=== PATIENT | female | born 1985 | race Two or more races ===

== ENCOUNTER 2019-01-08 04:02 | Emergency (ER) | payer MEDICAID ==
[~2019-01-08] VITALS: Ht 149.9 cm; Wt 64.9 kg
[~2019-01-08 04:02] MED LIST: NKM; NORCO 5-325 TA1 EACH ORAL; SENNA-GEN8.6 M1 ORAL
--- NOTE | 2019-01-08 04:10 | NUR ---
ED Nurse Note: Faby walked into ED 13 weeks c/o baginal bleeding, patient states that the bleeding started on January 02 to which spotting occured then after having a pap smear done on thursday she noticed an increasing in bleeding, patient reports of cramping pain. patient reports of saturating a light pad. she describes the characteristics as dark red. patient is alert and oriented x4, ambulatory with a steady gait, VSS
--- NOTE | 2019-01-08 04:26 | Emergency Room Report ---
History of Present Illness General Chief Complaint: Complications Source: Patient Present Illness HPI Is a 33-year-old female who is 4, para 3, approximately 13 weeks . She is a positive blood type. She presents with vaginal bleeding and cramping pain. Onset for 6 days. She seen her doctor at the clinic twice already. Had blood work done. She does not know the results. No ultrasound for this . Initially she had spotting. It proceeded to be more of a light period. Now with heavier bleeding with clots. Cramping pain in the lower abdominal area. No nausea no vomiting. No fever chills. No trauma. Allergies: Coded Allergies: No Known Allergies (Unverified , 06/03/16) Patient History Past Medical History: see triage record, old chart reviewed Past Surgical History: other Pertinent Family History: none Social History: Denies: smoking Last Menstrual Period: Oct 20 2018 Now: Yes : 4 Para: 3 Immunizations: other Reviewed Nursing Documentation: PMH: Agreed; PSxH: Agreed Nursing Documentation-PMH Past Medical History: No History, Except For Hx Cardiac Problems: No Hx Cancer: No Hx Gastrointestinal Problems: Yes Hx Neurological Problems: No Review of Systems Eye: Denies: eye pain, blurred vision ENT: Denies: ear pain, nose congestion, throat swelling Respiratory: Denies: cough, shortness of breath Cardiovascular: Denies: chest pain, palpitations Gastrointestinal: Denies: abdominal pain, diarrhea, nausea, vomiting Genitourinary: Reports: vag bleed/dc Musculoskeletal: Denies: back pain, joint pain Skin: Denies: rash Neurological: Denies: headache, numbness Endocrine: Denies: increased thirst, increased urine Hematologic/Lymphatic: Denies: easy bruising All Other Systems: negative except mentioned in HPI Physical Exam Vital Signs Date Time Temp Pulse Resp B/P (MAP) Pulse Ox O2 Delivery O2 Flow Rate FiO2 01/08/19 04:04 98.4 80 18 125/82 (96) 100 Room Air Vitals normal Sp02 EP Interpretation: reviewed, normal General Appearance: well appearing, no apparent distress, alert Head: normocephalic, atraumatic Eyes: bilateral eye PERRL, bilateral eye EOMI ENT: hearing grossly normal, normal pharynx Neck: full range of motion, supple, no meningismus Respiratory: chest non-tender, lungs clear, normal breath sounds Cardiovascular #1: regular rate, rhythm, no murmur Gastrointestinal: normal bowel sounds, non tender, no mass, no organomegaly, no bruit, non-distended Genitourinary: other - Pelvic exam was done with female nurse as transfer station attendant. External exam normal. Internal exam with clots and small amount of tissue at the os. Os is fingertip open. Musculoskeletal: back normal, gait/station normal, normal range of motion Psychiatric: mood/affect normal Medical Decision Making Diagnostic Impression: Primary Impression: Incomplete ER Course Patient presents with a spontaneous . My transabdominal ultrasound does not show a 13-week IUP. There was a small possible gestational sac of about 6 weeks gestation. We will get an official pelvic ultrasound. Patient ultrasound just showed possible gestational sac. No ectopic. Bleeding improved after I evacuated the tissue at the office. Will discharge home. We will give her labs here. CT/MRI/US Diagnostic Results CT/MRI/US Diagnostic Results : Imaging Test Ordered: US pelvic Impression Ultrasound read by electroplating technician. There is a cystic sac that may be a gestational sac. No ectopic. Last Vital Signs Date Time Temp Pulse Resp B/P (MAP) Pulse Ox O2 Delivery O2 Flow Rate FiO2 01/08/19 04:04 98.4 80 18 125/82 (96) 100 Room Air Status: improved Disposition: HOME, SELF-CARE Condition: Stable Scripts Ibuprofen* (MOTRIN*) 600 Mg Tablet 600 MG ORAL THREE TIMES A DAY, #30 TAB 0 Refills Prov: Javon Corral MD 01/08/19 Additional Instructions: Follow up with your [employer] on Thursday. Return if symptoms worsen. Javon Corral MD Jan 08, 2019 04:26
[2019-01-08 04:36] LABS: APPEARANCE,URINE CLOUDY; BILIRUBIN, URINE NEGATIVE (NEGATIVE); COLOR,URINE ORANGE; GLUCOSE, URINE (UA) NEGATIVE (NEGATIVE); KETONES,URINE 1+ (NEGATIVE); LEUKOCYTE ESTERASE ,URINE 2+ (NEGATIVE); NITRITE,URINE NEGATIVE (NEGATIVE); PH,URINE 5 (4.5-8.0); PROTEIN,URINE 2+ (NEGATIVE); UROBILINOGEN,URINE NORMAL MG/DL (0.0-1.0)
[2019-01-08 04:44] LABS: BASOPHILS % (AUTO) 0.5 % (0.0-2.0); EOSINOPHILS % (AUTO) 1.6 % (0.0-3.0); HEMATOCRIT 39.4 % (37.0-47.0); HEMOGLOBIN 13.2 G/DL (12.0-16.0); LYMPHOCYTES % (AUTO) 38.4 % (20.0-45.0); MEAN CORPUSCULAR VOLUME 88 FL (80-99); MONOCYTES % (AUTO) 6.7 % (1.0-10.0); NEUTROPHILS % (AUTO) 52.9 % (45.0-75.0); PLATELET COUNT 231 K/UL (150-450); RED BLOOD COUNT 4.45 M/UL (4.20-5.40); RED CELL DISTRIBUTION WIDTH 11.6 % (11.6-14.8); WHITE BLOOD COUNT 10.8 K/UL (4.8-10.8)
[2019-01-08 04:46] LABS: ANION GAP 8 mmol/L (5-15); BLOOD UREA NITROGEN 11 mg/dL (7-18); CALCIUM 9.2 MG/DL (8.5-10.1); CARBON DIOXIDE 25 MMOL/L (21-32); CHLORIDE 104 MMOL/L (98-107); CREATININE 0.7 MG/DL (0.55-1.30); POTASSIUM 3.5 MMOL/L (3.5-5.1); SODIUM 137 MMOL/L (136-145)
--- NOTE | 2019-01-08 05:15 | NUR ---
ER Nurse Note: US at pt side; will continue to montior.
[2019-01-08] MEDS ORDERED: IBUPROFEN600 MG ORAL (06:15)
[2019-01-08 06:28] VITALS: BP 128/78
--- NOTE | 2019-01-08 06:28 | NUR ---
ER Nurse Note: Pt seen, treated, medically cleared for discharge by ERMD. Discharge instuctions given with repeat verbalization by pt. Emphasized to follow up with primay care provider. All orders completed per ERMD orders. Pt a&ox4, VSS, no signs of distress. ID band removed. All questions answered per pt's questions. Pt left with all belongings, left with own transportation.
--- NOTE | 2019-01-08 07:53 | Diagnostic Imaging Report ---
EXAM: US Pelvis Complete, Transabdominal. US Pelvis, Transvaginal. CLINICAL HISTORY: ABD PAIN TECHNIQUE: Real-time transabdominal and transvaginal pelvic ultrasound (complete) with image documentation. Transvaginal imaging was used for better evaluation of the endometrium and adnexa. COMPARISON: No relevant prior studies available. FINDINGS: Endometrium: There is a small elongated saclike structure at the level of the uterine body, measuring approximate 14 x 5 x 13 mm, with a mean diameter of 11 mm. No definite yolk sac or pole is identified. Uterus/cervix: No myometrial mass. Right ovary: The right ovary measures 3.6 x 1.7 x 3.0 cm. No mass. Normal blood flow. Left ovary: The left ovary measures 2.3 x 1.7 x 1.9 cm. No mass. Normal blood flow. Free fluid: No free fluid. IMPRESSION: Possible early intrauterine gestational sac without evidence of yolk sac or pole. The morphology and position of this sac suggests anembryonic gestation/early failure. If the patient is clinically stable, recommend short-term follow-up pelvic sonogram within 7-10 days to reassess for viability.
== END 2019-01-08 06:28 | disposition home or self-care (01) ==
LOC: EMR 04:54
DX: O03.4 Incomplete spontaneous abortion without complication (principal); Z3A.13 13 weeks gestation of pregnancy
CPT/HCPCS: 36415; 76856; 80048; 81001; 84702; 85025; 99284